=== PATIENT | male | born 1970 | race Caucasian/White ===

== ENCOUNTER 2017-02-03 08:43 | Emergency (ER) | payer BC ==
[~2017-02-03] VITALS: Ht 172.7 cm; Wt 81.2 kg
[2017-02-03 08:46] VITALS: BP 123/81
== END 2017-02-03 09:03 | disposition home or self-care (01) ==
LOC: ER 08:44
DX: R05 Cough (principal)
CPT/HCPCS: 99283; A4606; Z7610

== ENCOUNTER 2017-04-05 13:00 | Emergency (ER) | payer BC, MEDICAID ==
[~2017-04-05] VITALS: Ht 177.8 cm; Wt 86.2 kg
[2017-04-05 14:19] VITALS: BP 115/104
== END 2017-04-05 14:22 | disposition home or self-care (01) ==
LOC: ER 13:01
DX: H61.23 Impacted cerumen, bilateral (principal); R19.7 Diarrhea, unspecified
CPT/HCPCS: 69210; 99284; A4606; A6403; Z7610

== ENCOUNTER 2017-11-01 10:45 | Emergency (ER) | payer BC | END 2017-11-01 11:53 | disposition left against medical advice (07) | LOC: ER 10:46 | DX: Z53.21 Procedure and treatment not carried out due to patient leaving prior to being seen by health care provider (principal) ==